=== PATIENT | male | born 1975 | race Hispanic/Latino ===

== ENCOUNTER 2021-07-23 14:03 | Emergency (ER) | payer MEDICARE | END 2021-07-23 17:25 | disposition home or self-care (01) | LOC: ERS 14:03 | DX: S29.012A Strain of muscle and tendon of back wall of thorax, initial encounter (principal); E03.9 Hypothyroidism, unspecified; K21.9 Gastro-esophageal reflux disease without esophagitis; E78.5 Hyperlipidemia, unspecified; J44.9 Chronic obstructive pulmonary disease, unspecified; Z87.891 Personal history of nicotine dependence; Z79.899 Other long term (current) drug therapy; X58.XXXA Exposure to other specified factors, initial encounter | CPT/HCPCS: 71046 ==

== ENCOUNTER 2022-01-22 08:50 | Outpatient (CLI) | payer MEDICARE | END 2022-01-22 08:51 | disposition home or self-care (01) | LOC: BICRAD 08:50 | PROVIDERS: ATTEND Family Medicine | DX: M47.894 Other spondylosis, thoracic region (principal); M54.50 Low back pain, unspecified; M54.6 Pain in thoracic spine | CPT/HCPCS: 72072; 72100 ==

== ENCOUNTER 2022-08-27 18:30 | Outpatient (CLI) | payer MEDICARE | END 2022-08-27 18:31 | disposition home or self-care (01) | LOC: SLEEPLAB 18:30 | PROVIDERS: ATTEND Internal Medicine | DX: J44.9 Chronic obstructive pulmonary disease, unspecified (principal); R09.02 Hypoxemia | CPT/HCPCS: 95800 ==

== ENCOUNTER 2022-09-25 13:32 | Outpatient (CLI) | payer MEDICARE | END 2022-09-25 13:33 | disposition home or self-care (01) | LOC: BICCT 13:32 | PROVIDERS: ATTEND Internal Medicine | DX: J45.40 Moderate persistent asthma, uncomplicated (principal); R91.8 Other nonspecific abnormal finding of lung field; M41.84 Other forms of scoliosis, thoracic region | CPT/HCPCS: 71250 ==

== ENCOUNTER 2022-12-16 17:00 | Outpatient (CLI) | payer MEDICARE | END 2022-12-16 17:01 | disposition home or self-care (01) | LOC: SLEEPLAB 17:00 | PROVIDERS: ATTEND Internal Medicine | DX: G47.33 Obstructive sleep apnea (adult) (pediatric) (principal); G47.31 Primary central sleep apnea; R09.02 Hypoxemia | CPT/HCPCS: 95811 ==

== ENCOUNTER 2023-06-21 16:43 | Emergency (ER) | payer MEDICARE ==
[2023-06-21] MEDS ORDERED: Ipratropium Bromide 2.5 ml Neb ONE (17:22)
[2023-06-21] MEDS ORDERED: Albuterol 2.5 MG (3 mL) NEB ONE (17:22)
[2023-06-21] MEDS ORDERED: methylPREDNISolone Sod Succ/PF 125 MG/2 ML VIAL ONE (17:26)
[2023-06-21] MEDS ORDERED: Magnesium 2 GM/50 ML BAG (IN WATER) ONE (17:26)
[2023-06-21 17:36] LABS: #Basophils Less than 0.03 10x3/uL (0.0-0.2); %Basophils 0.3 % (0.0-1.0); %Eosinophils 3.8 % (0.0-10.0); %Lymphocytes 40.4 % (21.0-51.0); %Monocytes 9.9 % (0.0-10.0); Hematocrit 34.9 % (42.0-52.0); Hemoglobin 11.5 g/dL (14.0-18.0); Mean Corpuscular Hemoglobin 28.1 pg (27.0-31.0); Mean Corpuscular Volume 85.3 fL (78.0-98.0); Mean Platelet Volume 9.5 fL (7.4-10.4); Platelet Count 276 10x3/uL (130-400); RBC Distribution Width 14.3 % (11.5-14.5); Red Blood Cell (RBC) Count 4.09 mill/uL (4.70-6.10)
[2023-06-21 17:49] LABS: ALT (SGPT) 12 U/L (8-55); AST (SGOT) 9 U/L (5-34); Albumin 3.5 g/dL (3.5-5.0); Alkaline Phosphatase 82 U/L (40-110); Anion Gap 12 mmol/L (10-20); BUN (Urea Nitrogen) 12 mg/dL (8.9-20.6); Bilirubin, Total 0.4 mg/dL (0.2-1.2); Calc. Creatinine Clearance 0 mL/min (70-130); Calcium 8.9 mg/dL (7.8-10.44); Carbon Dioxide 31 mmol/L (22-29); Chloride 106 mmol/L (98-107); Estimated GFR 91; Globulin 2.6 g/dL (2.4-3.5); Glucose 86 mg/dL (70-105); Potassium 3.9 mmol/L (3.5-5.1); Protein, Total 6.1 g/dL (6.0-8.3); Sodium 145 mmol/L (136-145)
[2023-06-21 17:55] LABS: Troponin I Less than 0.010 ng/mL (< 0.028)
[2023-06-21 18:22] LABS: Influenza A by NAA Not Detected (NotDetected); Influenza B by NAA Not Detected (NotDetected); SARS-CoV-2 NAA Rapid Test Not Detected (NotDetected)
== END 2023-06-21 18:44 | disposition home or self-care (01) ==
LOC: ERS 16:43
DX: J44.1 Chronic obstructive pulmonary disease with (acute) exacerbation (principal); Z87.891 Personal history of nicotine dependence; Z95.0 Presence of cardiac pacemaker
CPT/HCPCS: 0240U; 71046; 80053; 83880; 84484; 85025; 93005; 94640; 96365; 96375; 99285; J2930; J3475; J7611

== ENCOUNTER 2024-10-18 10:31 | Emergency (ER) | payer MEDICARE ==
[2024-10-18] MEDS ORDERED: levETIRAcetam 500 MG (5 mL) VIAL ONE (10:50)
[2024-10-18 11:00] LABS: #Basophils 0.03 10x3/uL (0.0-0.2); #Eosinophils 0.25 10x3/uL (0.0-0.7); #Monocytes 0.69 10x3/uL (0.11-0.59); #Neutrophils 2.79 10x3/uL (1.40-6.50); %Basophils 0.5 % (0.0-1.0); %Eosinophils 4.2 % (0.0-10.0); %Lymphocytes 37.2 % (21.0-51.0); %Monocytes 11.5 % (0.0-10.0); %Neutrophils 46.3 % (42.0-75.0); Hematocrit 37.4 % (42.0-52.0); Hemoglobin 11.6 g/dL (14.0-18.0); Mean Corpuscular Hemoglobin 25.8 pg (27.0-31.0); Mean Corpuscular Volume 83.3 fL (78.0-98.0); Platelet Count 275 10x3/uL (130-400); Red Blood Cell (RBC) Count 4.49 mill/uL (4.70-6.10); White Blood Cell (WBC) Count 6.02 10x3/uL (4.8-10.8)
[2024-10-18 11:23] LABS: ALT (SGPT) 8 U/L (Less than 45); AST (SGOT) 14 U/L (11-34); Albumin 4.0 g/dL (3.1-4.5); Alkaline Phosphatase 87 U/L (40-110); Anion Gap 21 mmol/L (10-20); BUN (Urea Nitrogen) 13 mg/dL (8.9-20.6); Bilirubin, Total 0.4 mg/dL (0.3-1.2); Calc. Creatinine Clearance 0 mL/min (70-130); Calcium 8.9 mg/dL (7.8-10.44); Carbon Dioxide 15 mmol/L (22-29); Chloride 107 mmol/L (98-107); Globulin 2.8 g/dL (2.4-3.5); Glucose 120 mg/dL (70-105); Magnesium 2.5 mg/dL (1.6-2.6); Potassium 3.9 mmol/L (3.5-5.1); Sodium 139 mmol/L (136-145)
[2024-10-18 11:24] LABS: Acetaminophen Less than 10 mcg/mL (Less than 10); Salicylate Less than 8.0 mg/dL (Less than 8.0)
== END 2024-10-18 13:33 | disposition home or self-care (01) ==
LOC: ERS 10:31
DX: R56.9 Unspecified convulsions (principal); E03.9 Hypothyroidism, unspecified; J44.9 Chronic obstructive pulmonary disease, unspecified; Z79.899 Other long term (current) drug therapy; Z79.51 Long term (current) use of inhaled steroids; Z79.82 Long term (current) use of aspirin; Z95.0 Presence of cardiac pacemaker; Z87.891 Personal history of nicotine dependence
CPT/HCPCS: 70450; 72125; 80053; 80307; 82962; 83735; 84484; 85025; 93005; J1953; J2060; 36416; 96365; 96375